=== PATIENT | female | born 1940 | race Caucasian/White ===

== ENCOUNTER 2022-06-11 04:33 | Observation (INO) ==
[2022-06-11 06:24] LABS: Urine Appearance Cloudy; Urine Color Red; Urine Specific Gravity 1.007 (1.002-1.030)
[2022-06-11 06:51] LABS: Urine Bacteria 2+ (Absent); Urine Red Blood Cell 3+(>10/hpf) (Absent); Urine Squamous Epithelial Cell Present (Absent); Urine White Blood Cell 3+(>20/hpf) (Absent)
[2022-06-11 07:02] LABS: ABS Eosinophils 0.1 10^3/ul (0-0.6); ABS Lymphocytes 1.4 10^3/ul (1.0-4.8); ABS Monocytes 0.6 10^3/ul (0-0.8); ABS Neutrophils 6.1 10^3/ul (1.5-7.7); Eosinophil % 0.9 %; Hematocrit 38 % (35-47); Mean Corpuscular HGB Conc 34 g/dL (31-36); Mean Corpuscular Hemoglobin 32 pg (27-31); Mean Corpuscular Volume 93 fL (80-97); Mean Platelet Volume 8.9 fL (7.4-10.4); Platelet Count 254 10^3/uL (150-450); Red Blood Count 4.12 10^6 /uL (3.70-4.87); Red Cell Distribution Width 14 % (10-15); White Blood Count 8.2 10^3/uL (3.5-10.8)
[2022-06-11 07:43] LABS: ALT 12 U/L (7-52); Albumin 4.3 g/dL (3.2-5.2); Albumin/Globulin Ratio 1.5 (1-3); Alkaline Phosphatase 67 U/L (35-149); Blood Urea Nitrogen 12 mg/dL (6-24); CO2 Carbon Dioxide 26 mmol/L (22-32); Chloride 103 mmol/L (101-111); Globulin 2.9 g/dL (2-4); Glucose 92 mg/dL (70-100); Sodium 137 mmol/L (135-145); Total Protein 7.2 g/dL (6.4-8.9); eGFR CKD-EPI 91.9 (>60)
[2022-06-11 07:56] LABS: Anion Gap 8 mmol/L (2-11)
[2022-06-11] MEDS ORDERED: Morphine 4 MG/ML VIAL (1 ml) IV ONE ×2 (08:39→10:35)
[2022-06-11] MEDS ORDERED: Lactated Ringers 1000 ml BAG 1,000 ML IV ONE ×2 (08:39→13:57)
[2022-06-11] MEDS ORDERED: Iohexol 350 (CONTRAST) 500 ML MDV IV ONE (08:42)
[2022-06-11] MEDS ORDERED: Ondansetron 4 mg VIAL 2 MG/ML 2 ml VIAL IV ONE (10:35)
[2022-06-11 11:37] LABS: Potassium Redraw 3.9 mmol/L (3.5-5.0)
[2022-06-11] MEDS ORDERED: cefTRIAXone 2 gm/50 mL D5W 2 GM/50 ML BAG IV ONE (14:49)
[2022-06-11] MEDS ORDERED: Lidocaine 2% PF 5 ML VIAL ONE (16:16)
[2022-06-11] MEDS ORDERED: Ondansetron 4 mg VIAL 2 MG/ML 2 ml VIAL ONE (16:16)
[2022-06-11] MEDS ORDERED: Propofol 10 MG/ML 20 ML BTL ONE (16:16)
[2022-06-11] MEDS ORDERED: fentaNYL 100 mcg/2 ml 50 MCG/ML VIAL ONE (16:16)
[2022-06-11] MEDS ORDERED: Dexamethasone IV 4 MG/ML VIAL 1 ml VIAL ONE (16:16)
[2022-06-11] MEDS ORDERED: Iohexol 350 (CONTRAST) 100 ML PAK IV ONE (16:40)
[2022-06-11] MEDS ORDERED: Naloxone 0.4 mg VIAL 0.4 mg/ml 1 ml VIAL IV PRN (17:33)
[2022-06-11] MEDS ORDERED: fentaNYL 100 mcg/2 ml 50 MCG/ML VIAL IV PRN (17:33)
[2022-06-11] MEDS ORDERED: Ondansetron 4 mg VIAL 2 MG/ML 2 ml VIAL IV PRN (17:33)
[2022-06-11] MEDS ORDERED: Succinylcholine 200 mg VIAL 20 mg/ml 10 ml VIAL (200 mg) ONE (18:22)
[2022-06-11] MEDS: LACTATED RINGERS 1000 ML BAG IV SCH (23:20)
[2022-06-12] MEDS: LACTATED RINGERS 1000 ML BAG IV SCH (03:58)
[2022-06-12 05:26] LABS: ABS Lymphocytes 0.7 10^3/ul (1.0-4.8); ABS Monocytes 0.4 10^3/ul (0-0.8); ABS Neutrophils 4.8 10^3/ul (1.5-7.7); Hematocrit 36 % (35-47); Lymphocyte % 12.3 %; Mean Corpuscular HGB Conc 33 g/dL (31-36); Mean Corpuscular Hemoglobin 31 pg (27-31); Mean Corpuscular Volume 94 fL (80-97); Mean Platelet Volume 8.6 fL (7.4-10.4); Platelet Count 204 10^3/uL (150-450); Red Blood Count 3.85 10^6 /uL (3.70-4.87); Red Cell Distribution Width 14 % (10-15)
[2022-06-12 05:33] LABS: INR 1.1 (0.89-1.11)
[2022-06-12 06:18] LABS: Calcium 9.3 mg/dL (8.6-10.3); Magnesium 1.8 mg/dL (1.9-2.7); Potassium 4.3 mmol/L (3.5-5.0); eGFR CKD-EPI 92.3 (>60)
[2022-06-12] MEDS ORDERED: cefTRIAXone 2 gm/50 mL D5W 2 GM/50 ML BAG IV ONE (09:00)
[2022-06-12 11:13] VITALS: BP 134/72
== END 2022-06-12 15:50 | disposition home or self-care (01) ==
LOC: EDHOLD 04:33 → ED 04:33 → EDHOLD 14:13 → SSU 14:34
PROVIDERS: ADMIT Internal Medicine; ATTEND Internal Medicine